=== PATIENT | female | born 1955 | race Caucasian/White ===

== ENCOUNTER → 2017-06-23 | Outpatient (CLI) | payer OTHER ==
--- NOTE | 2017-06-23 16:31 | RAD ---
Examination: Right shoulder, three views History: Pain, no injury Findings: No definite fracture, bone destruction or pathologic calcification. The humeral head is in normal position. Joint spaces are not significantly narrowed. Articular surfaces are smooth and well defined. Impression: No significant abnormality demonstrated. Reported By:
== END ==
LOC: RAD 15:54
PROVIDERS: ATTEND Nurse Practitioner Family
DX: M25.511 Pain in right shoulder (principal)
CPT/HCPCS: 73030

== ENCOUNTER 2019-12-25 15:03 | Inpatient (IN) ==
[2019-12-25] MEDS ORDERED: TUSSIONEX PENNKINETIC SUSP PO PRN (15:11)
[2019-12-25] MEDS ORDERED: LEVAQUIN PREMIX IV 750 MG 750 MG/150 ML BAG IV SCH (16:00)
[2019-12-25] MEDS ORDERED: NS 1/2 1000 ML IV 1,000 ML IV ONE ×2 (17:25→20:43)
[2019-12-25] MEDS ORDERED: ROBITUSSIN DM ONE (17:25)
[2019-12-25] MEDS ORDERED: LEVAQUIN PREMIX IV 750 MG 750 MG/150 ML BAG IV ONE (17:25)
[2019-12-25] MEDS ORDERED: VSL#3 PO ONE (17:26)
[2019-12-25] MEDS ORDERED: ZOFRAN INJ 4 MG VIAL ONE (17:34)
[2019-12-25] MEDS: ZOFRAN INJ 4 MG VIAL IVP PRN ×2 (17:45→21:47)
[2019-12-25] MEDS: NS 1/2 1000 ML IV 1,000 ML IV SCH (17:50)
[2019-12-25] MEDS ORDERED: PHENERGAN INJ 25 MG IM PRN (18:06)
[2019-12-25] MEDS: VSL#3 PO SCH (18:07)
[2019-12-25] MEDS: ROBITUSSIN DM PO SCH ×2 (18:08→20:12)
[2019-12-25] MEDS ORDERED: DUONEB 0.5 MG/3 MG (3 mL) NEB PRN (18:25)
[2019-12-25 18:28] VITALS: BMI 29.9
[2019-12-25] MEDS ORDERED: REMDESIVIR (INVESTIGATIONAL DRUG GS-5734) IV ONE (20:43)
[2019-12-25] MEDS: DUONEB 0.5 MG/3 MG (3 mL) NEB SCH (21:20)
[2019-12-26 04:39] LABS: BASOPHILS % (AUTO) 0.3 % (0.2-1.0); EOSINOPHILS % (AUTO) 0.2 % (0.9-2.9); HEMATOCRIT 36.6 % (36.0-47.0); HEMOGLOBIN 12.1 g/dL (12.0-16.0); LYMPHOCYTES # (AUTO) 1.2 X10^3/uL (1.3-2.9); LYMPHOCYTES % (AUTO) 32.4 % (21.0-51.0); MEAN CORPUSCULAR HEMOGLOBIN 28.8 pg (27.0-34.0); MEAN CORPUSCULAR HGB CONC 32.9 g/dL (33.0-35.0); MEAN CORPUSCULAR VOLUME 87.6 fL (80.0-100.0); MEAN PLATELET VOLUME 8.3 fL (7.4-11.0); MONOCYTES # (AUTO) 0.4 x10^3/uL (0.3-0.8); MONOCYTES % (AUTO) 11.6 % (0.0-13.0); NEUTROPHILS % (AUTO) 55.5 % (42.0-75.0); PLATELET COUNT 140 X10^3/uL (150.0-450.0); RED BLOOD COUNT 4.18 X10^6/uL (3.5-5.4); RED CELL DISTRIBUTION WIDTH 14.8 % (11.6-16.5); WHITE BLOOD COUNT 3.6 X10^3/uL (3.6-10.0)
[2019-12-26 04:56] LABS: ALANINE AMINOTRANSFERASE 38 Units/L (12-78); ALBUMIN 3.1 g/dL (3.4-5.0); ALKALINE PHOSPHATASE 58 Units/L (46-116); ASPARTATE AMINO TRANSFERASE 27 Units/L (15-37); BLOOD UREA NITROGEN 14 mg/dL (7-18); CALCIUM 8.3 mg/dL (8.5-10.1); CARBON DIOXIDE 28.1 mmol/L (21-32); CHLORIDE 104 mmol/L (98-107); CREATININE 0.91 mg/dL (0.55-1.02); SODIUM 138 mmol/L (136-145); TOTAL PROTEIN 6.8 g/dL (6.4-8.2); eGFR NON BLACK RACES > 60 (>60)
[2019-12-26 06:01] LABS: ABG BASE EXCESS 3.3 mmol/L (-2.0-2.0); ABG HCO3 28.5 mmol/L (22-26)
[2019-12-26 06:03] LABS: ABG ALLEN TEST POSS
--- NOTE | 2019-12-26 06:22 | RAD ---
HISTORYShortness of breath, COVID-19STUDYChest AP [id number] heart is within normal limits in size. The rafael are normal. The lungs are well inflated. Right lung and left upper lung leslie are clear. There is improvement in the left basilar lung infiltrate being followed. Subtle residual infiltrate remains. No pleural effusions are identified. Bony thorax is unremarkable.IMPRESSIONSignificant improved left basilar lung infiltrate with a small amount of residual infiltrate remainingThe remainder of the lung leslie appear clearElectronically signed by: MANGO ROONEY (Dec 26, 2019 06:21:22)
--- NOTE | 2019-12-26 08:39 | DR.H&P ---
H&P - History & Physical for Day of: H&P Date: 12/25/19 - Chief Complaint Chief Complaint: COUGH, FEVER, SOB, NAUSEA, ACHING, WEAKNESS, COVID POSITIVE - History of Present Illness History of Present Illness: IS A 64 YEAR OLD PATIENT OF [facility]. CONSULTED US FOR DIRECT ADMISSION OF PATIENT DUE TO COUGH, FEVER, SOB, NAUSEA, GENERALIZED ACHING, AND WEAKNESS X 1 WEEK. SHE TESTED POSITIVE FOR COVID-19 IN THE OFFICE. SHE HAS BEEN TAKING LEVAQUIN 500MG PO DAILY, TESSALON PERLES 200MG PO Q8H, XOPENEX NEB [place] Q4H PRN X 3 DAYS WITHOUT IMPROVEMENT IN SYMPTOMS. PRIOR TO THAT, SHE TOOK CEFDINIR 300MG PO BID AND AZITHROMYCIN 250MG PO X 5 DAYS. HER PMH INCLUDES: ULCERATIVE COLITIS, BLEEDING ULCERS, CHOLECYSTECTOMY, AND HYSTERECTOMY. ON ARRIVAL TO THE HOSPITAL, VITALS WERE 99.0-60-27-100%-143/72. OUTPATIENT LABS WERE OBTAINED PRIOR TO ADMISSION AND REVEALED: CREATININE 1.11, FERRITIN 279, CRP 50.70. ABG REVEALED: PH 7.500, PC02 34.0, P02 67.0, HC03 26.5, 02 SATURATION 95.0, BASE EXCESS 3.5, FI02 21.0. BLOOD AND SPUTUM CULTURES WERE SET UP. A CHEST XRAY WAS OBTAINED AND REVEALED: Patchy peripheral left lower lobe pneumonitis or pneumonia. SHE WAS STARTED ON 1/2NS AT 75 ML/HR, LEVAQUN 750MG IV DAILY, REMDESIVIR 200MG IV X 1 DOSE, THEN 100MG IV DAILY, TUSSIONEX 5ML PO Q12H, TESSALON PERLES 200MG PO TID, AND ROBITUSSIN DM 10 ML PO QID. TODAY, WE WILL START SOLU-MEDROL 40MG IV Q8H AND PULMICORT NEB TX BID. OTHERWISE, WE PLAN TO FOLLOW UP WITH AM LABS AND CONTINUE TO MONITOR. TIME SPENT WITH PATIENT ON EXAMINATION, REVIEWING LABS, COUNSELING, AND PLAN OF CARE WAS BETWEEN 30-74 MINUTES. - Past Medical History Additional Medical History: ULCERATIVE COLITIS, BLEEDING ULCERS - Past Surgical History Surgical History: Cholecystectomy, Hysterectomy - Family History Family Medical History: Diabetes Mellitus, Cancer - Social History Does patient currently use any type of tobacco product: No Have you used tobacco products in the last 12 months: No Type of Tobacco Use: None Does any household member use tobacco: No Alcohol Use: None Drug Use: None - Medications Home Medications: metoclopramide [From Reglan] Allergy (Verified 12/25/19 18:13) prochlorperazine [From Compazine] Allergy (Verified 12/25/19 18:13) CONTINUE taking the following medications benzonatate 200 mg PO Q8H PRN 12/25/19 [History] [id number]-[id number] 1 tab PO Q6H PRN 12/25/19 [History] cyanocobalamin (vitamin B-12) 1,000 mcg IM MONTHLY 12/25/19 [History] diclofenac sodium 1 % TOPICAL BID PRN 12/25/19 [History] ergocalciferol (vitamin D2) [Vitamin D2] 50,000 unit PO DAILY 12/25/19 [History] levalbuterol HCl 0.31 mg INHALATION Q4H PRN 12/25/19 [History] levofloxacin 500 mg PO DAILY 12/25/19 [History] ondansetron 4 mg PO Q6H PRN 12/25/19 [History] pantoprazole 40 mg PO DAILY 12/25/19 [History] - Review of Systems Constitutional: See HPI, Fever, Chills, Weakness Eyes: No Symptoms Reported ENT: No Symptoms Reported Respiratory: Cough, Shortness of Breath, SOB with Excertion, Sputum, Wheezing Cardiovascular: No Symptoms Reported Gastrointestinal: Nausea Genitourinary: No Symptoms Reported Musculoskeletal: No Symptoms Reported Skin: No Symptoms Reported Neurological: Weakness - Physical Exam Vital Signs: Temperature 99.2 F Pulse Rate [Left Radial] 62 Pulse Rate 57 Respiratory Rate 21 Blood Pressure [Right Arm] 107/62 Blood Pressure 113/58 O2 Sat by Pulse Oximetry 97 Oriented: Normal Eyes: Normal Ear: Normal Nose: Normal Respiratory: Wheezes Throughout Cardiovascular: Normal : Normal Auscultation: Bowel Sounds: Normal Palpation: Normal Tenderness: Normal Skin: Normal Musculoskeletal: Normal Psychiatric: Normal Mood Description: Calm Affect: Normal Speech Pattern: Clear - Assessment/Plan (1) COVID-19 Status: Acute Plan: 1/2NS AT 150 ML/HR, LEVAQUN 750MG IV DAILY, REMDESIVIR 200MG IV X 1 DOSE, THEN 100MG IV DAILY, TUSSIONEX 5ML PO Q12H, SOLU-MEDROL 40MG IV Q8H, DUONEBS QID, PULMICORT NEBS BID, TESSALON PERLES 200MG PO TID, AND ROBITUSSIN DM 10 ML PO QID (2) Pneumonia Qualifiers: Pneumonia type: due to unspecified organism Laterality: left Lung location: lower lobe of lung Qualified Code(s): J18.9 - Pneumonia, unspecified organism Status: Acute - Allergies Allergies/Adverse Reactions: Allergies Allergy/AdvReac Type Severity Reaction Status Date / Time metoclopramide [From Reglan] Allergy Verified 12/25/19 18:13 prochlorperazine Allergy Verified 12/25/19 18:13 [From Compazine]
[2019-12-26] MEDS ORDERED: SOLU-Medrol 40 MG VIAL ONE (09:12)
[2019-12-26] MEDS: DUONEB 0.5 MG/3 MG (3 mL) NEB SCH ×4 (09:15→20:20)
[2019-12-26] MEDS: NS 1/2 1000 ML IV 1,000 ML IV SCH ×3 (09:15→21:11)
[2019-12-26] MEDS: VSL#3 PO SCH (09:15)
[2019-12-26] MEDS: SOLU-Medrol 40 MG VIAL IVP SCH ×3 (09:15→21:12)
[2019-12-26] MEDS: ROBITUSSIN DM PO SCH ×4 (09:16→21:12)
[2019-12-26] MEDS: REMDESIVIR (INVESTIGATIONAL DRUG GS-5734) 100 MG in NS 250 ML IV 250 ML IV SCH (09:17)
[2019-12-26] MEDS: LOVENOX INJ 40 MG SYR SC SCH (09:20)
[2019-12-26] MEDS: ZOFRAN INJ 4 MG VIAL IVP PRN (09:30)
[2019-12-26] MEDS ORDERED: NS 1000 ML 1,000 ML IV ONE (10:00)
[2019-12-26] MEDS: PULMICORT NEB TX 0.5 MG NEB SCH ×2 (10:30→20:20)
[2019-12-26] MEDS: TUSSIONEX PENNKINETIC SUSP PO SCH (10:50)
[2019-12-26] MEDS: TESSALON PERLES PO SCH ×3 (10:50→21:12)
[2019-12-26] MEDS ORDERED: VOLTAREN 1 % GEL MULTI DOSE TUBE TOP PRN (11:16)
[2019-12-26] MEDS ORDERED: FIORICET TAB PO PRN (11:16)
[2019-12-26] MEDS: VITAMIN D (1.25MG) PO SCH (11:41)
[2019-12-26] MEDS: PROTONIX TAB 40 MG PO SCH (11:41)
[2019-12-26] MEDS: LEVAQUIN PREMIX IV 750 MG 750 MG/150 ML BAG IV SCH (17:31)
[2019-12-26] MEDS ORDERED: NS 1/2 1000 ML IV 1,000 ML IV ONE (17:48)
[2019-12-26] MEDS ORDERED: REMDESIVIR (INVESTIGATIONAL DRUG GS-5734) IV SCH (20:00)
[2019-12-27] MEDS ORDERED: NS 1/2 1000 ML IV 1,000 ML IV ONE ×3 (03:19→23:10)
[2019-12-27 05:03] LABS: BASOPHILS % (AUTO) 0.2 % (0.2-1.0); HEMATOCRIT 34.7 % (36.0-47.0); HEMOGLOBIN 11.5 g/dL (12.0-16.0); LYMPHOCYTES # (AUTO) 0.6 X10^3/uL (1.3-2.9); LYMPHOCYTES % (AUTO) 20.2 % (21.0-51.0); MEAN CORPUSCULAR HEMOGLOBIN 28.8 pg (27.0-34.0); MEAN CORPUSCULAR HGB CONC 33.2 g/dL (33.0-35.0); MEAN CORPUSCULAR VOLUME 86.7 fL (80.0-100.0); MEAN PLATELET VOLUME 7.9 fL (7.4-11.0); MONOCYTES # (AUTO) 0.2 x10^3/uL (0.3-0.8); MONOCYTES % (AUTO) 6.7 % (0.0-13.0); NEUTROPHILS # (AUTO) 2.1 x10^3/uL (2.2-4.8); NEUTROPHILS % (AUTO) 72.9 % (42.0-75.0); PLATELET COUNT 161 X10^3/uL (150.0-450.0); RED CELL DISTRIBUTION WIDTH 14.6 % (11.6-16.5); WHITE BLOOD COUNT 2.9 X10^3/uL (3.6-10.0)
[2019-12-27 05:20] LABS: ALANINE AMINOTRANSFERASE 60 Units/L (12-78); ALBUMIN 2.9 g/dL (3.4-5.0); ALKALINE PHOSPHATASE 56 Units/L (46-116); ASPARTATE AMINO TRANSFERASE 39 Units/L (15-37); BLOOD UREA NITROGEN 9 mg/dL (7-18); CALCIUM 8.3 mg/dL (8.5-10.1); CARBON DIOXIDE 24.8 mmol/L (21-32); CHLORIDE 106 mmol/L (98-107); COR CA(FOR HYPOALB) 9.2 mg/dL (8.5-10.1); COR NA(FOR HYPERGLY) 138 mmol/L (136-145); CREATININE 0.72 mg/dL (0.55-1.02); SODIUM 137 mmol/L (136-145); TOTAL PROTEIN 6.3 g/dL (6.4-8.2); eGFR NON BLACK RACES > 60 (>60)
[2019-12-27] MEDS: SOLU-Medrol 40 MG VIAL IVP SCH ×3 (06:04→22:00)
[2019-12-27] MEDS: TESSALON PERLES PO SCH ×3 (06:04→22:00)
--- NOTE | 2019-12-27 06:23 | RAD ---
HISTORYShortness of breathSTUDYChest AP [id number]/2020FINDINGSThe heart is within normal limits in size. The rafael are normal. The lungs are well inflated. The right lung and left upper lung leslie are clear. Slight residual left basilar infiltrate remains. No pleural effusions are identified. Bony thorax is unremarkable.IMPRESSIONNo significant change from the prior examinationElectronically signed by: MANGO ROONEY (Dec 27, 2019 06:21:30)
[2019-12-27] MEDS: DUONEB 0.5 MG/3 MG (3 mL) NEB SCH ×4 (08:55→21:49)
[2019-12-27] MEDS: PULMICORT NEB TX 0.5 MG NEB SCH ×2 (08:55→21:49)
[2019-12-27] MEDS: REMDESIVIR (INVESTIGATIONAL DRUG GS-5734) 100 MG in NS 250 ML IV 250 ML IV SCH (09:07)
[2019-12-27] MEDS: VITAMIN D (1.25MG) PO SCH (09:09)
[2019-12-27] MEDS: LOVENOX INJ 40 MG SYR SC SCH (09:10)
[2019-12-27] MEDS: PROTONIX TAB 40 MG PO SCH (09:11)
[2019-12-27] MEDS: VSL#3 PO SCH (09:11)
[2019-12-27] MEDS: ROBITUSSIN DM PO SCH ×4 (09:11→20:17)
[2019-12-27] MEDS: NS 1/2 1000 ML IV 1,000 ML IV SCH ×3 (09:12→23:29)
[2019-12-27] MEDS: TUSSIONEX PENNKINETIC SUSP PO SCH ×3 (10:26→22:01)
[2019-12-27] MEDS: LEVAQUIN PREMIX IV 750 MG 750 MG/150 ML BAG IV SCH (17:59)
[2019-12-28 05:16] LABS: BASOPHILS % (AUTO) 0.1 % (0.2-1.0); HEMOGLOBIN 11.9 g/dL (12.0-16.0); LYMPHOCYTES # (AUTO) 0.9 X10^3/uL (1.3-2.9); LYMPHOCYTES % (AUTO) 8.4 % (21.0-51.0); MEAN CORPUSCULAR HEMOGLOBIN 28.8 pg (27.0-34.0); MEAN CORPUSCULAR HGB CONC 32.9 g/dL (33.0-35.0); MEAN CORPUSCULAR VOLUME 87.3 fL (80.0-100.0); MEAN PLATELET VOLUME 8.7 fL (7.4-11.0); MONOCYTES # (AUTO) 0.6 x10^3/uL (0.3-0.8); MONOCYTES % (AUTO) 6.3 % (0.0-13.0); NEUTROPHILS # (AUTO) 8.8 x10^3/uL (2.2-4.8); NEUTROPHILS % (AUTO) 85.2 % (42.0-75.0); PLATELET COUNT 233 X10^3/uL (150.0-450.0); RED BLOOD COUNT 4.13 X10^6/uL (3.5-5.4); RED CELL DISTRIBUTION WIDTH 14.6 % (11.6-16.5); WHITE BLOOD COUNT 10.3 X10^3/uL (3.6-10.0)
[2019-12-28 05:30] LABS: ALANINE AMINOTRANSFERASE 51 Units/L (12-78); ALBUMIN 3.1 g/dL (3.4-5.0); ALKALINE PHOSPHATASE 58 Units/L (46-116); ASPARTATE AMINO TRANSFERASE 25 Units/L (15-37); BLOOD UREA NITROGEN 13 mg/dL (7-18); CALCIUM 8.8 mg/dL (8.5-10.1); CARBON DIOXIDE 26.2 mmol/L (21-32); CHLORIDE 103 mmol/L (98-107); COR CA(FOR HYPOALB) 9.5 mg/dL (8.5-10.1); COR NA(FOR HYPERGLY) 137 mmol/L (136-145); CREATININE 0.82 mg/dL (0.55-1.02); SODIUM 136 mmol/L (136-145); TOTAL PROTEIN 6.6 g/dL (6.4-8.2); eGFR NON BLACK RACES > 60 (>60)
[2019-12-28] MEDS ORDERED: NS 1/2 1000 ML IV 1,000 ML IV ONE (05:37)
--- NOTE | 2019-12-28 06:05 | RAD ---
HISTORYSOBSTUDYCHEST, 1 [id number]/15/2020FINDINGSThe trachea is midline. The cardiac silhouette is unremarkable. Mild residual left basilar infiltrate. The remainder of the lungs are clear. No pleural effusion or pneumothorax.. The bony thorax is unremarkable.IMPRESSIONLeft basilar infiltrate; no significant change from 12/27/2019Electronically signed by: Efraín Chaudhari (Dec 28, 2019 06:04:13)
[2019-12-28] MEDS: TESSALON PERLES PO SCH ×2 (06:07→15:10)
[2019-12-28] MEDS: SOLU-Medrol 40 MG VIAL IVP SCH ×2 (06:07→15:09)
[2019-12-28] MEDS: NS 1/2 1000 ML IV 1,000 ML IV SCH ×2 (06:07→16:36)
[2019-12-28] MEDS: LOVENOX INJ 40 MG SYR SC SCH (08:27)
[2019-12-28] MEDS: VITAMIN D (1.25MG) PO SCH (08:35)
[2019-12-28] MEDS: PROTONIX TAB 40 MG PO SCH (08:35)
[2019-12-28] MEDS: ROBITUSSIN DM PO SCH ×2 (08:35→13:28)
[2019-12-28] MEDS: REMDESIVIR (INVESTIGATIONAL DRUG GS-5734) 100 MG in NS 250 ML IV 250 ML IV SCH (08:35)
[2019-12-28] MEDS: VSL#3 PO SCH (08:36)
--- NOTE | 2019-12-28 08:46 | PCM.PROG ---
Progress Note - Progress Note for Day of Date of Exam: 12/27/19 - Subjective Subjective: IS BEING TREATED FOR COVID-19 AND PNEUMONIA. TODAY, SHE IS ALERT AND ORIENTED, LYING IN BED ON MORNING ROUNDS. SHE CONTINUES WITH COMPLAINTS OF COUGH, SHORTNESS OF BREATH AND WEAKNESS, BUT REPORTS SLIGHT IMPROVEMENT IN SYMPTOMS TODAY. ON EXAMINATION, HEART IS REGULAR IN RATE AN R HYTHM. BILATERAL LUNGS ARE NOTED WITH SCATTERED WHEEZING THROUGHOUT. ABDOMEN IS ROUND, SOFT, AND NON-TENDER WITH NORMAL BOWEL SOUNDS NOTED IN ALL QUADRANTS. HER VITALS THIS MORNING ARE 97.7-55-13-100%-112/62. LABS WERE OBTAINED. ABNORMAL LAB VALUES INCLUDE THE FOLLOWING: WBC 2.9, HGB 11.5, HCT 34.7, GLUCOSE 142, CALCIUM 8.3, FERRITIN 603, AST 39, CRP 42.10, TOTAL PROTEIN 6.3, ALBUMIN 2.9. BLOOD CU LTURES AND SPUTUM CULTURES ARE PENDING. A CHEST XRAY WAS OBTAINED AND REVEALED: The heart is within normal limits in size. The rafael are normal. The lungs are well inflated. The right lung and left upper lung leslie are clear. Slight residual left basilar infiltrate remains. No pleural effusions are identified. Bony thorax is unremarkable. SHE IS CURRENTLY RECEIVING 1/2NS AT 75 ML/HR, LEVAQUIN 750MG IV DAILY, REMDESIVIR 100MG IV DAILY, TUSSIONEX 5ML PO Q12H, TESSALON PERLES 200MG PO TID, ROBITUSSIN DM 10 ML PO QID, PULMICORT NEB TX, DUONEBS, AND SOLU-MEDROL 40MG IV Q8H. WE WILL CONTINUE WITH CURRENT PLAN OF CARE TODAY. OTHERWISE, WE WILL FOLLOW UP WITH AM LABS AND CHEST XRAY AND CONTINUE TO MONITOR. - Past Medical Family Social History Past Med/Fam/Surg Hx: No changes since H&P Allergies: Allergies metoclopramide [From Reglan] Allergy (Verified 12/25/19 18:13) prochlorperazine [From Compazine] Allergy (Verified 12/25/19 18:13) - Review of Systems ROS: No change since H&P - Vital Signs and I&O's Vital Signs: Temperature 97.7 F Pulse Rate [Left Radial] 86 Pulse Rate 57 Respiratory Rate 15 Blood Pressure [Right Arm] 145/62 Blood Pressure 113/57 O2 Sat by Pulse Oximetry 98 Intake and Output: Intake & Output 12/25/19 12/26/19 12/27/19 12/28/19 11:59 11:59 11:59 11:59 Intake Total 1800 / 1800 3840 / 3840 4484 / 4484 Balance 1800 / 1800 3840 / 3840 4484 / 4484 - Physical Exam Oriented: Normal Eyes: Normal Ear: Normal Nose: Normal Respiratory: Generalized, Diminished, Wheezes Cardiovascular: Normal : Normal Auscultation: Bowel Sounds: Normal Palpation: Normal Tenderness: Normal Skin: Normal Musculoskeletal: Normal Psychiatric: Normal Mood Description: Calm Affect: Normal Speech Pattern: Clear - Laboratory and Diagnostics Result Diagrams: 12/28/19 04:10 12/28/19 04:10 Labs: 12/25/19 17:46 Blood Blood Culture - Preliminary 12/25/19 17:43 Blood Blood Culture - Preliminary 12/25/19 18:17 Sputum - Endotracheal Wash Sputum Culture - Final 12/25/19 18:17 Sputum - Endotracheal Wash - Final Laboratory WBC 10.3 X10^3/uL (3.6-10.0) H 12/28/19 04:10 RBC 4.13 X10^6/uL (3.5-5.4) 12/28/19 04:10 Hgb 11.9 g/dL (12.0-16.0) L 12/28/19 04:10 Hct 36.0 % (36.0-47.0) 12/28/19 04:10 MCV 87.3 fL (80.0-100.0) 12/28/19 04:10 MCH 28.8 pg (27.0-34.0) 12/28/19 04:10 MCHC 32.9 g/dL (33.0-35.0) L 12/28/19 04:10 RDW 14.6 % (11.6-16.5) 12/28/19 04:10 Plt Count 233 X10^3/uL (150.0-450.0) 12/28/19 04:10 MPV 8.7 fL (7.4-11.0) 12/28/19 04:10 Neut % (Auto) 85.2 % (42.0-75.0) H 12/28/19 04:10 Lymph % (Auto) 8.4 % (21.0-51.0) L 12/28/19 04:10 [place] % (Auto) 6.3 % (0.0-13.0) 12/28/19 04:10 Eos % (Auto) 0.0 % (0.9-2.9) L 12/28/19 04:10 Baso % (Auto) 0.1 % (0.2-1.0) L 12/28/19 04:10 Neut # (Auto) 8.8 x10^3/uL (2.2-4.8) H 12/28/19 04:10 Lymph # (Auto) 0.9 X10^3/uL (1.3-2.9) L 12/28/19 04:10 [place] # (Auto) 0.6 x10^3/uL (0.3-0.8) 12/28/19 04:10 Eos # (Auto) 0.0 x10^3/uL (0.0-0.2) 12/28/19 04:10 Baso # (Auto) 0.0 X10^3/uL (0.0-0.1) 12/28/19 04:10 Absolute Nucleated RBC 0.0 /100WBC 12/28/19 04:10 Sample Site Left brach 12/26/19 05:55 ABG pH 7.410 (7.35-7.45) 12/26/19 05:55 ABG pCO2 45.0 mmHg (35.0-45.0) 12/26/19 05:55 ABG pO2 93.0 mmHg (80.0-100.0) 12/26/19 05:55 ABG HCO3 28.5 mmol/L (22-26) H 12/26/19 05:55 ABG O2 Saturation 97.0 % (90-100) 12/26/19 05:55 ABG Base Excess 3.3 mmol/L (-2.0-2.0) H 12/26/19 05:55 [place] Test Poss 12/26/19 05:55 A-a Gradient 50.0 mmHg 12/26/19 05:55 FiO2 28.0 12/26/19 05:55 Blood Gas Comments Megan well kb 12/26/19 05:55 Sodium 136 mmol/L (136-145) 12/28/19 04:10 Corrected Sodium 137 mmol/L (136-145) 12/28/19 04:10 Potassium 4.0 mmol/L (3.5-5.1) 12/28/19 04:10 Chloride 103 mmol/L (98-107) 12/28/19 04:10 Carbon Dioxide 26.2 mmol/L (21-32) 12/28/19 04:10 BUN 13 mg/dL (7-18) 12/28/19 04:10 Creatinine 0.82 mg/dL (0.55-1.02) 12/28/19 04:10 Est GFR (MDRD) Af Amer > 60 (>60) 12/28/19 04:10 Est GFR (MDRD) Non-Af > 60 (>60) 12/28/19 04:10 Glucose 129 mg/dL (65-99) H 12/28/19 04:10 Calcium 8.8 mg/dL (8.5-10.1) 12/28/19 04:10 Corrected Calcium 9.5 mg/dL (8.5-10.1) 12/28/19 04:10 Ferritin 411 ng/mL (8-252) H 12/28/19 04:10 Total Bilirubin 0.20 mg/dL (0.2-1.0) 12/28/19 04:10 AST 25 Units/L (15-37) 12/28/19 04:10 ALT 51 Units/L (12-78) 12/28/19 04:10 Alkaline Phosphatase 58 Units/L (46-116) 12/28/19 04:10 C-Reactive Protein 23.30 mg/L (0-3.0) H 12/28/19 04:10 Total Protein 6.6 g/dL (6.4-8.2) 12/28/19 04:10 Albumin 3.1 g/dL (3.4-5.0) L 12/28/19 04:10 Globulin 3.5 g/dL (2.5-4.5) 12/28/19 04:10 Albumin/Globulin Ratio 0.9 Ratio (1.1-2.1) L 12/28/19 04:10 - Plan (1) COVID-19 Status: Acute Plan: 1/2NS AT 150 ML/HR, LEVAQUN 750MG IV DAILY, REMDESIVIR 100MG IV DAILY, TUSSIONEX 5ML PO Q12H, SOLU-MEDROL 40MG IV Q8H, DUONEBS QID, PULMICORT NEBS BID, TESSALON PERLES 200MG PO TID, AND ROBITUSSIN DM 10 ML PO QID (2) Pneumonia Status: Acute Qualifiers: Pneumonia type: due to unspecified organism Laterality: left Lung location: lower lobe of lung Qualified Code(s): J18.9 - Pneumonia, unspecified organism
[2019-12-28] MEDS: DUONEB 0.5 MG/3 MG (3 mL) NEB SCH ×2 (09:35→13:25)
[2019-12-28] MEDS: PULMICORT NEB TX 0.5 MG NEB SCH (09:35)
[2019-12-28] MEDS: TUSSIONEX PENNKINETIC SUSP PO SCH (10:15)
[2019-12-28] MEDS ORDERED: REMDESIVIR (INVESTIGATIONAL DRUG GS-5734) 100 MG in NS 250 ML IV 250 ML IV NR (14:45)
[2019-12-28 16:37] VITALS: BP 111/61
== END 2019-12-28 17:15 | disposition home or self-care (01) | DRG 177 ==
LOC: ICU → OBSVTOIN 17:04
PROVIDERS: ADMIT Internal Medicine; ATTEND Internal Medicine
DX: J12.89 Other viral pneumonia; U07.1 COVID-19; R06.02 Shortness of breath
CPT/HCPCS: 36415; 36600; 71010; 71020; 71045; 71046; 80053; 82728; 82803; 85025; 85652; 86140; 87040; 87070; 87205; 94640; 94669; A4222; J1650; J1956; J2405; J2550; J2920; J7030; J7050; J7620; J7626